=== PATIENT | female | born 1945 | race Caucasian/White ===

== ENCOUNTER 2019-04-12 21:30 | Inpatient (IN) | payer MEDICARE, MEDICAID ==
[~2019-04-12] VITALS: Ht 157.5 cm; Wt 72.6 kg
--- NOTE | 2019-04-12 21:55 | NUR ---
GPS SHIPYARD PAINTING SUPERVISOR NOTE RECEIVED PATIENT FROM [facility] VIA GURNEY BY 2 EMT ESCORTS. PATIENT ARRIVED IN THE UNIT AT 2153. PATIENT ADMITTED ON A 5150 HOLD FOR DTS, DTO, AND GD. PER HOLD PATIENT BECAME EXTREMELY UPSET D/T AM EVICTION BEING CONDUCTED TO THE PATIENT AND SHE REFUSED TO LEAVE THE LOCATION AND PUT A WORK STUDY STUDENT KNIFE TO HER THROAT AND STATED SHE WANTED THE CUSTOM SHOE DESIGNER AND MAKER TO SHOOT HER. UPON FACE TO FACE ASSESSMENT PATIENT IS NOTED BEING HYPERVERBAL, DISHEVELED AND COOPERATIVE. PATIENT IS CURRENTLY IN BED LAYING AWAKE, WITH NO S/S OR C/O PAIN. PATIENT DISPLAYS NO APPARENT S/S OF DISTRESS. BREATHING IS EVEN, REGULAR AND UNLABORED. PATIENT IS A/OX4. ON ROOM AIR WITH NO S/S SOB. PATIENT HAS NO NEEDS AT THIS TIME. PATIENT DENIES SUICIDAL IDEATION AND HOMICIDAL IDEATION AT THIS TIME. PATIENT HAS SIGNS ALL PAPER WORK, PATIENT WAS ADVISED OF THEIR HOLD AND PATIENT RIGHTS BOOKLET GIVEN. PATIENT IS UNDER PSYCHIATRIC CARE OF DR. RDE AND THE MEDICAL CARE OF DR. ROUSSEAU.PATIENT BELONGINGS WERE INVENTORIED AND CHECKED FOR CONTRABAND. ALL CONTRABAND REMOVED AND STORED IN PATIENT HALLWAY LOCKER. PATIENTS ADVANCE DIRECTIVES PREFERENCE, IMMUNIZATION QUESTIONNAIRE, NECESSARY PAPERWORK COMPLETED. SKIN ASSESSMENT COMPLETED. PATIENT ORIENTED TO ROOM, FLOOR, STAFF WITH ALL QUESTIONS ANSWERED. PATIENT EDUCATE ON THE USE OF THE CALL MILLS, PATIENT BED SIDE RAILS UP X2 FOR SAFETY, BED IS LOW AND LOCKED. I WILL CONTINUE TO MONITOR THIS PATIENT Q15 MINS FOR SAFETY AND BEHAVIOR.
[2019-04-12 22:03] VITALS: BP 98/55
[2019-04-12] MEDS ORDERED: LORA0.5T PO (22:18)
[2019-04-12] MEDS ORDERED: CARI350T PO (22:28)
[2019-04-12] MEDS ORDERED: LISI-603 PO (22:29)
[2019-04-12] MEDS ORDERED: METO50TA16 PO (22:30)
[2019-04-12] MEDS ORDERED: ACET1TAB23 PO (22:47)
[2019-04-12] MEDS ORDERED: NAPR-1164 PO (22:47)
[2019-04-12] MEDS ORDERED: DOCU100C36 PO (22:47)
[2019-04-12] MEDS ORDERED: IBUP-1957 PO (22:48)
[2019-04-12] MEDS ORDERED: ACETAMINOPHEN 325 MG TABLET PO PRN (23:00)
[2019-04-12] MEDS ORDERED: DOCUSATE SODIUM 100 MG CAPSULE PO SCH (23:00)
[2019-04-12] MEDS ORDERED: ACETAMINOPHEN W/ CODEINE#3 1 EA TABLET PO PRN (23:00)
[2019-04-12] MEDS ORDERED: IBUPROFEN 800 MG TABLET PO PRN (23:00)
[2019-04-12] MEDS ORDERED: MAG HYDROX/AL HYDROX/SIMETH 30 ML UDC PO PRN (23:00)
[2019-04-12] MEDS ORDERED: MAGNESIUM HYDROXIDE 30 ML UDC PO PRN (23:00)
[2019-04-13] MEDS: TEMAZEPAM 7.5 MG CAPSULE PO PRN ×2 (01:51→22:13)
[2019-04-13] MEDS: clonazePAM 0.5 MG TABLET PO PRN ×2 (03:42→08:37)
[2019-04-13 07:02] LABS: BASOPHILS # (AUTO) 0.1 /CMM (0.0-0.2); BASOPHILS % (AUTO) 0.7 % (0.0-2.0); EOSINOPHILS % (AUTO) 2.9 % (0.0-6.0); HEMATOCRIT 41 % (33-45); HEMOGLOBIN 13.7 g/dL (11.5-14.8); LYMPHOCYTES # (AUTO) 2.4 /CMM (0.8-4.8); LYMPHOCYTES % (AUTO) 34.5 % (20.0-44.0); MEAN CORPUSCULAR HGB CONC 34 g/dl (31.0-36.0); MEAN CORPUSCULAR VOLUME 94 fL (82-100); MONOCYTES # (AUTO) 0.4 /CMM (0.1-1.30); NEUTROPHILS # (AUTO) 3.9 /CMM (1.8-8.9); NEUTROPHILS % (AUTO) 55.9 % (43.0-81.0); PLATELET COUNT (AUTO) 247 /CMM (150-450); RED BLOOD CELL COUNT(AUTO) 4.29 MIL/uL (4.0-5.2)
[2019-04-13 07:22] LABS: CALCIUM, SERUM 9.2 mg/dL (8.5-10.1); POTASSIUM 4.8 mmol/L (3.5-5.1)
[2019-04-13 08:00] VITALS: BP 138/69
[2019-04-13] MEDS: NICOTINE PATCH (21MG) 21 MG PATCH.TD24 TD SCH (08:41)
[2019-04-13] MEDS: DULOXETINE HCL 30 MG CAPSULE.DR PO SCH (12:15)
[2019-04-13] MEDS ORDERED: IBUPROFEN 800 MG TABLET PO SCH (14:00)
[2019-04-13 16:00] VITALS: BP 126/84
[2019-04-13] MEDS: METOPROLOL TARTRATE 50 MG TABLET PO SCH (16:51)
[2019-04-13] MEDS: LISINOPRIL (20MG) 20 MG TABLET PO SCH (16:51)
[2019-04-13] MEDS: NAPROXEN 500 MG TABLET PO SCH (16:51)
[2019-04-13] MEDS: DOCUSATE SODIUM 100 MG CAPSULE PO SCH (16:52)
[2019-04-13] MEDS: ACETAMINOPHEN W/ CODEINE#3 1 EA TABLET PO SCH (18:48)
[2019-04-13 19:59] VITALS: BP 115/73
[2019-04-13] MEDS: LORAZEPAM 0.5 MG TABLET PO PRN (20:07)
[2019-04-13] MEDS: CARISOPRODOL 350 MG TABLET PO PRN (20:07)
--- NOTE | 2019-04-13 20:25 | NUR ---
GPS RN NOTE: PATIENT REQUEST FROM SOMA AND ATIVAN. SOMA 350MG 1 TAB ORAL GIVEN PER MD ORDER AND ATIVAN 0.5MG 1 TAB ORAL GIVEN PER MD ORDER. PATIENT REFUSED HEPARIN, EXPLAINED RISK AND BENEFITS, BUT CONTINUES TO REFUSE MEDICATIONS. WILL CONTINUE TO MONITOR.
[2019-04-13] MEDS: HEPARIN SODIUM, PORCINE 5000 UNITS/1 ML VIAL SQ SCH (20:29)
--- NOTE | 2019-04-13 22:15 | NUR ---
GPS RN NOTE: PATIENT REQUEST FOR SLEEPING MEDICATION, RESTORIL 7.5MG 1 CAP ORAL GIVEN PER MD ORDER. WILL CONTINUE TO MONITOR.
--- NOTE | 2019-04-14 00:05 | NUR ---
GPS RN NOTE: PATIENT REFUSES TYLENOL #3 AT THIS TIME. PATIENT DENIES ANY PAIN AT THIS TIME. WILL CONTINUE TO MONITOR.
[2019-04-14] MEDS: LORAZEPAM 0.5 MG TABLET PO PRN ×3 (04:12→21:35)
[2019-04-14] MEDS: CARISOPRODOL 350 MG TABLET PO PRN ×3 (04:12→21:35)
--- NOTE | 2019-04-14 04:15 | NUR ---
GPS RN NOTE: PATIENT REQUEST FROM SOMA AND ATIVAN. SOMA 350MG 1 TAB ORAL GIVEN PER MD ORDER AND ATIVAN 0.5MG 1 TAB ORAL GIVEN PER MD ORDER. WILL CONTINUE TO MONITOR.
[2019-04-14] MEDS: ACETAMINOPHEN W/ CODEINE#3 1 EA TABLET PO SCH ×4 (06:00→18:00)
[2019-04-14 08:00] VITALS: BP 106/59
[2019-04-14] MEDS: NICOTINE PATCH (21MG) 21 MG PATCH.TD24 TD SCH (08:10)
[2019-04-14] MEDS: METOPROLOL TARTRATE 50 MG TABLET PO SCH ×2 (08:13→16:43)
[2019-04-14] MEDS: NAPROXEN 500 MG TABLET PO SCH ×2 (08:14→16:42)
[2019-04-14] MEDS: DOCUSATE SODIUM 100 MG CAPSULE PO SCH ×3 (08:15→16:42)
[2019-04-14] MEDS: HEPARIN SODIUM, PORCINE 5000 UNITS/1 ML VIAL SQ SCH (08:16)
[2019-04-14] MEDS: DULOXETINE HCL 30 MG CAPSULE.DR PO SCH (08:16)
[2019-04-14] MEDS: LISINOPRIL (20MG) 20 MG TABLET PO SCH ×2 (08:16→16:43)
[2019-04-14 16:00] VITALS: BP 112/70
--- NOTE | 2019-04-14 18:50 | NUR ---
GPS/RN PT REFUSED TYLENOL #3 SCHEDULED FOR 1800. NO C/O PAIN REPORTED.
--- NOTE | 2019-04-14 19:27 | NUR ---
A/O X4 INITIATED WITH INTERACTION. AMBULATORY/ STEADY GAIT. CALM, COOPERATIVE, DENIES SI. ENVIRONMENTAL SAFETY CHECK DONE. BED ALARM ON, BED LOCKED AND PLACED ON LOWEST POSITION. WILL CONTINUE TO MONITOR Q15 MINS. FOR SAFETY AND BEHAVIOR
[2019-04-14 19:46] VITALS: BP 122/72
[2019-04-15] MEDS: ACETAMINOPHEN W/ CODEINE#3 1 EA TABLET PO SCH ×6 (01:13→16:48)
[2019-04-15] MEDS: CARISOPRODOL 350 MG TABLET PO PRN ×3 (05:43→17:52)
[2019-04-15 08:00] VITALS: BP 100/59
[2019-04-15] MEDS: DOCUSATE SODIUM 100 MG CAPSULE PO SCH ×2 (08:14→16:22)
[2019-04-15] MEDS: DULOXETINE HCL 30 MG CAPSULE.DR PO SCH (08:15)
[2019-04-15] MEDS: NAPROXEN 500 MG TABLET PO SCH ×2 (08:15→16:17)
[2019-04-15] MEDS: METOPROLOL TARTRATE 50 MG TABLET PO SCH ×2 (08:15→16:18)
[2019-04-15] MEDS: LISINOPRIL (20MG) 20 MG TABLET PO SCH ×2 (08:16→16:17)
[2019-04-15] MEDS: NICOTINE PATCH (21MG) 21 MG PATCH.TD24 TD SCH (08:16)
[2019-04-15] MEDS: LORAZEPAM 0.5 MG TABLET PO PRN ×2 (09:24→17:52)
--- NOTE | 2019-04-15 09:28 | NUR ---
ATIVAN ADMIN FOR ANXIETY
[2019-04-15 11:32] VITALS: BP 100/59
--- NOTE | 2019-04-15 11:35 | NUR ---
AYDEN contacted pts son Claus [phone] for collateral information/discharge planning. Son confirmed that pt is unable to return home due to her being evicted. Son stated that he wishes for pt to be hospitalized for a couple more days as he fears pt will do something irrational. Son did confirm that pt will be discharged to her boyfriends house in [place] and will be going [facility] the [facility] from the hospital. AYDEN will collaborate with Son as he is planning her trip to [place].
--- NOTE | 2019-04-15 12:31 | NUR ---
INITIAL DISCHARGE PLAN: Per pts son Claus [phone] pt is unable to return home as she has been evicted. Per son pt will be discharged to [facility] where she will take a flight to her boyfriends [place]ushing in [place]. Pt also agreed to this plan. SW will help form a safe and proper discharge plan in collaboration with .
--- NOTE | 2019-04-15 15:00 | NUR ---
GROUP NOTE: SW encouraged pt to participate in group on this present day discussing "gaining insight." Pt refused stating that she was leaving today and did not have to participate in groups because she did not belong here. AYDEN informed pt that she does not have a discharge order and that her psychiatrist had extended her hold to a 14 day hold. Pt became upset and stated that she needed to talk to the psychiatrist.
[2019-04-15 16:00] VITALS: BP 118/81
[2019-04-15] MEDS ORDERED: IBUPROFEN 400 MG TABLET PO SCH (16:38)
--- NOTE | 2019-04-15 16:48 | NUR ---
administered tylenol #3 at 1649 for back pain 03/12
--- NOTE | 2019-04-15 17:55 | NUR ---
PAIN AT 7/10 AFTER TYLENOL #3. PT REQUEST PRN SOMA FOR PAIN. ADMIN AT [id number]
--- NOTE | 2019-04-15 17:55 | NUR ---
ATIVAN ADMINISTERED FOR ANXIETY RELATED TO PAIN MANAGEMENT
[2019-04-15 20:12] VITALS: BP 98/48
--- NOTE | 2019-04-15 22:51 | NUR ---
ptbrecieved awake alert and ointed x3.no complain of any pain .pt have stable gait , pt have no neck ache . pt is receptive . thought process intact . pt deny suicidal thought . will comtinue to monitor pt for any pain, suicidal thaughts .
[2019-04-16] MEDS: LORAZEPAM 0.5 MG TABLET PO PRN (02:39)
[2019-04-16] MEDS: CARISOPRODOL 350 MG TABLET PO PRN ×3 (02:40→20:31)
[2019-04-16] MEDS: ACETAMINOPHEN W/ CODEINE#3 1 EA TABLET PO SCH ×2 (06:00)
[2019-04-16 08:00] VITALS: BP 149/98
[2019-04-16] MEDS: NICOTINE PATCH (21MG) 21 MG PATCH.TD24 TD SCH (08:12)
[2019-04-16] MEDS: NAPROXEN 500 MG TABLET PO SCH ×2 (08:12→16:34)
[2019-04-16] MEDS: METOPROLOL TARTRATE 50 MG TABLET PO SCH ×2 (08:13→16:34)
[2019-04-16] MEDS: LISINOPRIL (20MG) 20 MG TABLET PO SCH ×2 (08:13→16:35)
[2019-04-16] MEDS: DULOXETINE HCL 30 MG CAPSULE.DR PO SCH (08:21)
[2019-04-16] MEDS: DOCUSATE SODIUM 100 MG CAPSULE PO SCH ×2 (08:21→16:34)
--- NOTE | 2019-04-16 08:21 | NUR ---
RN NOTE: PT REFUSED CYMBALTA THIS MORNING. PER PT "EVERY MORNING AFTER MY MORNING MEDS I GET A TERRIBLE HEADACHE AND I THINK THIS MAY BE THE CULPRIT"
[2019-04-16] MEDS ORDERED: ACETAMINOPHEN W/ CODEINE#3 1 EA TABLET PO PRN (10:30)
--- NOTE | 2019-04-16 11:12 | NUR ---
SOMA PRN FOR SHOULDER/NECK PAIN 01/09
[2019-04-16] MEDS: clonazePAM 0.5 MG TABLET PO PRN ×3 (11:38→21:30)
--- NOTE | 2019-04-16 11:52 | NUR ---
KLONOPIN ADMINISTERED FOR ANXIETY
--- NOTE | 2019-04-16 12:39 | NUR ---
GPS/RN-NOTES PATIENT C/O RIGHT KNEE PAIN AND REQUESTING FOR KNEE BRACE .JONES CHASE AWARE OF THE REQUEST,SEEN THE PATIENT WITH VERBAL ORDER OF ORTHO CONSULT. NOTED AND CARRIED OUT. SAY BELLA MADE AWARE.
--- NOTE | 2019-04-16 13:56 | NUR ---
GROUP NOTE: SW encouraged pt to participate in group on this present day discussing "family support." Pt participated in group and stated that her son has been a great support to her and that currently he was staying at her property to make sure it is safe and that her belongings are not thrown out as she has been evicted. Pt stated that her boyfriend is also a big support and that she will be going to his house in [place] once she is discharged from the hospital. Pts mood was calm and cooperative and pt maintained good eye contact.
[2019-04-16 16:00] VITALS: BP 102/67
--- NOTE | 2019-04-16 16:36 | NUR ---
GPS/RN-NOTES PATIENT REQUESTING KLONOPIN. STATED" I NEED IT FOR MY ANXIETY" KLONOPIN 0.5MG P.O GIVEN PRN ORDER. WILL CONT. MONITORING FOR SAFETY AND BEHAVIOR.
[2019-04-16 20:00] VITALS: BP 102/69
--- NOTE | 2019-04-16 20:45 | NUR ---
PATIENT WEARING SOFT NECK COLLAR. STATE IT IS HELPING SUPPORT HER NECK. PER WIDE LOAD ESCORT PATIENT HAS NOT BEEN WEARING SOFT C COLLAR FOR THE LAST TWO NIGHTS AND PATIENT DID NOT APPEAR TO BE IN DISCOMFORT.THERE IS NO ORDER FOR SOFT COLLAR FROM THE MD. SOFT COLLAR CONFISCATED AND PLACED WITH PATISNTS BELONGINGS CONTRABAND. WILL FOLLOW UP WITH MD IF PATIENT NEEDS OR OT USE SOFT COLLAR WHILE ON THE UNIT.
--- NOTE | 2019-04-16 21:30 | NUR ---
PATIENT REQUESTED KLONOPIN. KLONOPIN 0.5 MG ADMINISTERED ORDERED PRN.
[2019-04-17] MEDS: clonazePAM 0.5 MG TABLET PO PRN ×3 (04:05→16:49)
[2019-04-17] MEDS: CARISOPRODOL 350 MG TABLET PO PRN ×2 (04:49→11:50)
[2019-04-17 08:00] VITALS: BP 100/57
[2019-04-17] MEDS: DULOXETINE HCL 30 MG CAPSULE.DR PO SCH (08:07)
[2019-04-17] MEDS: NAPROXEN 500 MG TABLET PO SCH ×2 (08:07→16:43)
[2019-04-17] MEDS: DOCUSATE SODIUM 100 MG CAPSULE PO SCH ×2 (08:07→16:44)
[2019-04-17] MEDS: METOPROLOL TARTRATE 50 MG TABLET PO SCH ×2 (08:09→16:44)
[2019-04-17] MEDS: LISINOPRIL (20MG) 20 MG TABLET PO SCH ×2 (08:10→16:44)
[2019-04-17] MEDS: NICOTINE PATCH (21MG) 21 MG PATCH.TD24 TD SCH (08:11)
--- NOTE | 2019-04-17 08:36 | NUR ---
SW contacted pts son Claus [phone] and left a voicemail informing him pt will be discharged on Monday04/19/19 and that SW will be needing flight conformation to coordinate discharge.
--- NOTE | 2019-04-17 10:43 | NUR ---
AYDEN spoke with pts son Claus [phone] who stated he is in the process of buying an airline ticket for pt and as soon as it is confirmed he will contact AYDEN to arrange discharge for Monday.
--- NOTE | 2019-04-17 10:46 | NUR ---
RN NOTE: PATIENT C/O FEELING ANXIOUS. ADMINISTERED KLONOPIN.
[2019-04-17 16:00] VITALS: BP 139/68
[2019-04-17 20:04] VITALS: BP 144/57
[2019-04-17] MEDS: TEMAZEPAM 7.5 MG CAPSULE PO PRN (22:58)
[2019-04-18] MEDS: CARISOPRODOL 350 MG TABLET PO PRN (06:08)
[2019-04-18 08:00] VITALS: BP 107/59
[2019-04-18] MEDS: METOPROLOL TARTRATE 50 MG TABLET PO SCH ×2 (08:03→16:27)
[2019-04-18] MEDS: LISINOPRIL (20MG) 20 MG TABLET PO SCH ×2 (08:04→16:28)
[2019-04-18] MEDS: NICOTINE PATCH (21MG) 21 MG PATCH.TD24 TD SCH (08:10)
[2019-04-18] MEDS: clonazePAM 0.5 MG TABLET PO PRN ×3 (08:23→20:09)
[2019-04-18] MEDS: DOCUSATE SODIUM 100 MG CAPSULE PO SCH ×2 (08:23→16:26)
--- NOTE | 2019-04-18 08:23 | NUR ---
RN NOTE: PATIENT C/O FEELING ANXIOUS. ADMINISTERED PRN KLONOPIN.
[2019-04-18] MEDS: DULOXETINE HCL 30 MG CAPSULE.DR PO SCH (08:24)
[2019-04-18] MEDS: NAPROXEN 500 MG TABLET PO SCH ×2 (08:24→16:26)
--- NOTE | 2019-04-18 10:30 | NUR ---
AYDEN spoke with pts son Claus [phone] who stated he will be picking pt up tomorrow Monday04/19/19 between 10:00am and 12:00pm and stated he will be taking pt to live with him for a few days before pt flies to [place]. Sons home address is [address] [place] [address].
--- NOTE | 2019-04-18 12:50 | NUR ---
RN NOTE: PATIENT C/O FEELING ANXIOUS. ADMINISTERED PRN KLONOPIN.
[2019-04-18 16:00] VITALS: BP 113/71
[2019-04-18 20:00] VITALS: BP 95/53
--- NOTE | 2019-04-18 20:09 | NUR ---
RN GPS NOTES PATIENT IN HALLWAY REQUESTING FOR KLONOPIN APPEARS ANXIOUS. KLONOPIN PRN GIVEN ORDERED. WILL CONTINUE TO MONITOR FOR EFFECTIVENESS. AFTER ADMINISTRATION PATIENT WENT BACK TO ROOM TO LAY IN BED.
[2019-04-18 20:20] VITALS: BP 94/53
[2019-04-18] MEDS: TEMAZEPAM 7.5 MG CAPSULE PO PRN (21:43)
--- NOTE | 2019-04-18 21:43 | NUR ---
RN GPS NOTES PATIENT REQUESTING FOR SLEEP MEDICATION RESTORIL PRN OFFERED PATIENT AGREED, TOILETING OFFERED PRIOR TO ADMINISTRATION. PRN RESTORIL GIVEN ORDERED. PATIENT MADE AWARE OF BED ALARM ON FOR SAFETY PRECAUTIONS VERBALLY UNDERSTANDS. WILL CONTINUE TO MONITOR.
[2019-04-19] MEDS: clonazePAM 0.5 MG TABLET PO PRN (05:30)
--- NOTE | 2019-04-19 05:32 | NUR ---
RN GPS NOTES PATIENT STATES "FEELING ANXIOUS AND EXCITED FOR DISCHARGE CAN I HAVE CLONAZEPAM" PRN CLONAZEPAM GIVEN ORDERED WILL CONTINUE TO MONITOR FOR EFFECTIVENESS.
[2019-04-19] MEDS: CARISOPRODOL 350 MG TABLET PO PRN (06:33)
--- NOTE | 2019-04-19 06:33 | NUR ---
RN GPS NOTES PATIENT COMPLAINT OF PAIN 01/09 STATES "PAIN AT NECK AND SHOULDER, CAN I HAVE SOMA" PRN SOMA ORDERED GIVEN, WILL CONTINUE TO MONITOR FOR EFFECTIVENESS. PATIENT IS IN HALLWAY AT THIS TIME IN MY SIGHT REQUESTING FOR NECK BRACE AND KNEE BANDAID, PATIENT UNDERSTANDS NEEDS TO BE WITHIN STAFF SIGHT WHEN NECK BRACE AND KNEE BANDAID IN PLACE. WILL CONTINUE TO MONITOR AND ENDORSE TO NEXT SHIFT.
--- NOTE | 2019-04-19 07:20 | NUR ---
rn gps notes neck brace and knee bandaid removed placed in locked locker.
[2019-04-19 08:00] VITALS: BP_SYST 151; BP_SYST 97; BP_DIAS 60; BP_DIAS 89
[2019-04-19] MEDS: DOCUSATE SODIUM 100 MG CAPSULE PO SCH (08:03)
[2019-04-19] MEDS: NICOTINE PATCH (21MG) 21 MG PATCH.TD24 TD SCH (08:03)
[2019-04-19] MEDS: DULOXETINE HCL 30 MG CAPSULE.DR PO SCH (08:03)
[2019-04-19] MEDS: NAPROXEN 500 MG TABLET PO SCH (08:04)
[2019-04-19 08:05] VITALS: BP 97/60
[2019-04-19] MEDS: METOPROLOL TARTRATE 50 MG TABLET PO SCH (08:05)
[2019-04-19] MEDS: LISINOPRIL (20MG) 20 MG TABLET PO SCH (08:05)
--- NOTE | 2019-04-19 10:08 | NUR ---
DISCHARGE NOTE: Pt will be discharged at 10:30am via private vehicle to her sons house [address] [facility]. Pts son Claus [phone] will be picking pt up and transporting home. Pts mood is euthymic with congruent affect. Pt denied visual/auditory hallucinations and denied suicidal/homicidal ideation. Pt was given a referral to [facility] Address: [id number], [place] [address] and was encouraged to present at 9:00am on Monday04/22/19 for an intake. Pt will also follow up with Interior Paneler: Dr. Lenore Maier Address: [address] , [place] [address] . The multidisciplinary exit care form was done, printed, signed, and given to the patient.
--- NOTE | 2019-04-19 10:17 | NUR ---
GPS/RN-NOTES PATIENT DISCHARGE TO HER SON'S HOUSE TODAY. AND JONES CHASE MADE AWARE OF THE DISCHARGE.DR. MALCOLM ,[place] DID RX FOR THE PATIENT. PATIENT DID NOT VERBALIZE SI/HI,DENIES VISUAL /AUDITORY HALLUCINATIONS AT THE TIME OF DISCHARGE. PATIENT LEFT THE UNIT ALERT ORIENTED X4 AMBULATORY STEADY GAIT. INSTRUCTED PATIENT TO FOLLOW UP WITH HER PRIMARY PHYSICIAN IN A WEEK ,CALL 911 OR GO TO THE NEAREST EMERGENCY ROOM IN-CASE OF EMERGENCY.PATIENT'S SON MEGAN PICK HER UP IN THE UNIT, ALL BELONGINGS AND RX WAS GIVEN TO THE SON. SHE WAS WHEELED DOWN BY ONE HOSE SUSPENDER CUTTER STAFF IN THE LOBBY FOR SAFETY.
== END 2019-04-19 10:15 | disposition home or self-care (01) | DRG 881 ==
LOC: GPS 21:30
PROVIDERS: ADMIT Psychiatry & Neurology Psychiatry; ATTEND Hospitalist
DX: F32.9 Major depressive disorder, single episode, unspecified (principal); F41.0 Panic disorder [episodic paroxysmal anxiety]; F41.9 Anxiety disorder, unspecified; G58.9 Mononeuropathy, unspecified; M43.6 Torticollis; G89.29 Other chronic pain; M54.9 Dorsalgia, unspecified; Z87.891 Personal history of nicotine dependence; I10 Essential (primary) hypertension; Z88.0 Allergy status to penicillin
CPT/HCPCS: 36415; 80048-TC; 80061-TC; 85025-TC; 87081-TC; 97116-TC; 97530-TC